=== PATIENT | male | born 2000 | race Two or more races ===

== ENCOUNTER 2021-05-06 19:33 | Emergency (ER) | payer OTHER ==
[~2021-05-06] VITALS: Ht 160 cm; Wt 66.2 kg
[2021-05-06] MEDS ORDERED: ADVIL (20:20)
[2021-05-07] MEDS ORDERED: FLAGYL500MG PO (01:54)
[2021-05-07] MEDS ORDERED: PEPCID40 MG PO (01:54)
[2021-05-07] MEDS ORDERED: INTESTINEX680 M1 PO (01:54)
[2021-05-07] MEDS ORDERED: CIPRO500 MG PO (01:54)
[2021-05-07] MEDS ORDERED: ZOFRAN8 MG PO (01:54)
== END 2021-05-07 02:04 ==
LOC: ER 19:33
DX: K52.9 Noninfective gastroenteritis and colitis, unspecified (principal); Z03.818 Encounter for observation for suspected exposure to other biological agents ruled out; R10.13 Epigastric pain; R11.11 Vomiting without nausea

== ENCOUNTER 2021-12-15 12:19 | Emergency (ER) | payer OTHER ==
[~2021-12-15] VITALS: Ht 160 cm; Wt 63.5 kg
[~2021-12-15 12:19] MED LIST: ADVIL; CIPRO500 MG PO; FLAGYL500MG PO; INTESTINEX680 M1 PO; PEPCID40 MG PO; ZOFRAN8 MG PO
== END 2021-12-15 14:41 | disposition home or self-care (01) ==
LOC: ER 12:19
DX: L03.011 Cellulitis of right finger (principal); L02.511 Cutaneous abscess of right hand; Z91.013 Allergy to seafood

== ENCOUNTER 2021-12-21 12:41 | Emergency (ER) | payer OTHER ==
[~2021-12-21] VITALS: Ht 160 cm; Wt 63.5 kg
[2021-12-21] MEDS ORDERED: AMOX-CLAV 875-1 EAC1 PO (15:12)
[2021-12-21] MEDS ORDERED: INTESTINEX680 M1 PO (15:12)
== END 2021-12-21 15:50 ==
LOC: ER 12:41
DX: L03.011 Cellulitis of right finger (principal); B95.61 Methicillin susceptible Staphylococcus aureus infection as the cause of diseases classified elsewhere